=== PATIENT | male | born 1980 | race Hispanic/Latino ===

== ENCOUNTER 2020-07-27 12:17 | Inpatient (IN) | payer OTHER ==
[~2020-07-27] VITALS: Ht 177.8 cm; Wt 77.1 kg
[2020-07-27 12:33] LABS: APPEARANCE,URINE Clear (CLEAR); BILIRUBIN,URINE Negative (NEGATIVE); COLOR,URINE Yellow (YELLOW); GLUCOSE, URINE (UA) Negative (NEGATIVE); KETONES,URINE Negative (NEGATIVE); LEUKOCYTE ESTERASE ,URINE Negative (NEGATIVE); NITRATE,URINE Negative (NEGATIVE); OCCULT BLOOD,URINE Negative (NEGATIVE); PH,URINE 5.5 (5.0-8.0); PROTEIN,URINE Negative (NEGATIVE); UROBILINOGEN,URINE 0.2 mg/dL (0.2-1.0)
[2020-07-27] MEDS ORDERED: SODIUM CHLORIDE 0.9% 1000ML 1,000 ML IV ONE (12:43)
[2020-07-27 12:44] LABS: BASOPHILS % (AUTO) 0.5 % (0.0-5.0); EOSINOPHILS % (AUTO) 1.1 % (0.0-8.0); HEMATOCRIT 42.7 % (42-54); LYMPHOCYTES % (AUTO) 21.6 % (21.0-51.0); MEAN CORPUSCULAR HEMOGLOBIN 30.4 pg (27.0-33.0); MEAN CORPUSCULAR HGB CONC 34.2 g/dL (32.0-36.0); MEAN CORPUSCULAR VOLUME 88.8 fL (79-99); MONOCYTES % (AUTO) 8.6 % (3.0-13.0); PLATELET COUNT (AUTO) 234 K/uL (130-400); RED BLOOD CELL COUNT(AUTO) 4.81 MIL/uL (4.50-6.20); RED CELL DISTRIBUTION WIDTH 12.7 % (11.0-15.5); WHITE BLOOD COUNT (AUTO) 8.4 K/uL (4.8-10.8)
[2020-07-27] MEDS ORDERED: IOHEXOL 350 MG/ML 100ML INFUS..BTL IV ONE (12:48)
[2020-07-27] MEDS ORDERED: KETOROLAC TROMETHAMINE 30MG/ML ONE (12:52)
[2020-07-27] MEDS ORDERED: ONDANSETRON HCL 4 MG/2 ML VIAL ONE (12:52)
[2020-07-27 12:57] LABS: ALBUMIN 4.1 g/dL (3.5-5.0); BILIRUBIN,TOTAL 1.2 mg/dL (0.2-1.0); POTASSIUM 3.3 mmol/L (3.5-5.1); TOTAL PROTEIN, SERUM 7.6 g/dL (6.0-8.3)
[2020-07-27] MEDS ORDERED: MORPHINE SULFATE 4 MG/1ML SYG ONE (13:56)
[2020-07-27] MEDS ORDERED: ACETAMINOPHEN 325 MG TAB PO PRN ×2 (16:30)
[2020-07-27] MEDS ORDERED: MORPHINE SULFATE 4 MG/1ML SYG IV PRN (16:30)
[2020-07-27] MEDS: SODIUM CHLORIDE 0.9% 1000ML 1,000 ML IV SCH (16:30)
[2020-07-27] MEDS ORDERED: ZOSYN 3.375GM+NS 50ML 50 ML IV ONE (16:32)
[2020-07-27 17:09] LABS: HEMOGLOBIN A1C 5.5 % (4.0-6.0)
[2020-07-27 19:06] VITALS: BP 110/74
[2020-07-27 19:36] VITALS: BP 108/71
[2020-07-27] MEDS ORDERED: MAGNESIUM CITRATE 296 ML SOLUTION PO ONE (20:45)
[2020-07-27] MEDS: FAMOTIDINE/PF 20 MG/2 ML VIAL IV SCH (21:14)
[2020-07-27 23:18] VITALS: BP 101/62
[2020-07-28] VITALS (25 sets, daily range): BP systolic 92–115; BP diastolic 52–77
[2020-07-28] MEDS: ZOSYN 3.375GM+NS 50ML 50 ML IV SCH ×5 (00:38→21:16)
[2020-07-28] MEDS ORDERED: HYDROMORPHONE HCL 0.5 MG/0.5 ML ML IVP ONE (01:00)
[2020-07-28] MEDS: SODIUM CHLORIDE 0.9% 1000ML 1,000 ML IV SCH ×7 (02:30→21:16)
[2020-07-28 05:29] LABS: BASOPHILS % (AUTO) 0.5 % (0.0-5.0); EOSINOPHILS % (AUTO) 1.3 % (0.0-8.0); HEMATOCRIT 39.6 % (42-54); LYMPHOCYTES % (AUTO) 24.2 % (21.0-51.0); MEAN CORPUSCULAR HEMOGLOBIN 29.7 pg (27.0-33.0); MEAN CORPUSCULAR HGB CONC 33.1 g/dL (32.0-36.0); MEAN CORPUSCULAR VOLUME 89.8 fL (79-99); MONOCYTES % (AUTO) 7.9 % (3.0-13.0); NEUTROPHILS % (AUTO) 65.8 % (40.0-77.0); PLATELET COUNT (AUTO) 209 K/uL (130-400); RED BLOOD CELL COUNT(AUTO) 4.41 MIL/uL (4.50-6.20); RED CELL DISTRIBUTION WIDTH 12.6 % (11.0-15.5); WHITE BLOOD COUNT (AUTO) 7.6 K/uL (4.8-10.8)
[2020-07-28 05:39] LABS: POTASSIUM 3.8 mmol/L (3.5-5.1)
[2020-07-28] MEDS ORDERED: SUCCINYLCHOLINE CHLORIDE 20 MG/ML 10 ML VIAL ONE (07:15)
[2020-07-28] MEDS ORDERED: LIDOCAINE PF 2% 5ML ABBOJECT ONE (07:15)
[2020-07-28] MEDS ORDERED: ROCURONIUM 10MG/1ML SYR 10 MG/ML ML ONE ×2 (07:16→07:35)
[2020-07-28] MEDS ORDERED: FENTANYL CITRATE PF 50 MCG/1 ML 2ML VIAL ONE (07:16)
[2020-07-28] MEDS ORDERED: PROPOFOL 10 MG/ML 20ML VIAL IV ONE (07:16)
[2020-07-28] MEDS ORDERED: BUPIVACAINE/PF 0.25% 30ML VIAL IJ ONE (07:25)
[2020-07-28] MEDS: FAMOTIDINE/PF 20 MG/2 ML VIAL IV SCH ×2 (09:00→21:16)
[2020-07-28] MEDS ORDERED: LIDOCAINE HCL 1% 20 ML VIAL ONE (09:10)
[2020-07-28] MEDS ORDERED: GLYCOPYRROLATE 1 MG/5 ML SYRINGE ONE (09:27)
[2020-07-28] MEDS ORDERED: KETOROLAC TROMETHAMINE 30MG/ML ONE (09:27)
[2020-07-28] MEDS ORDERED: ONDANSETRON HCL 4 MG/2 ML VIAL ONE (09:27)
[2020-07-28] MEDS ORDERED: NEOSTIGMINE 5MG/5ML SYR IV ONE (09:27)
[2020-07-28] MEDS ORDERED: MEPERIDINE-PF 25 MG/ML SYG ONE (10:19)
[2020-07-28] MEDS: MORPHINE SULFATE 2 MG/ML 1ML SYG IV PRN ×2 (11:29→21:17)
[2020-07-28] MEDS: ONDANSETRON HCL 4 MG/2 ML VIAL IV PRN ×2 (11:30→21:23)
[2020-07-28] MEDS ORDERED: OXYCODONE/ACETAMIN 5/325MG TAB PO PRN (12:15)
[2020-07-28] MEDS ORDERED: OXYCODONE/ACETAMIN 5/325MG TAB ONE ×2 (12:17→12:21)
[2020-07-29] MEDS: MORPHINE SULFATE 2 MG/ML 1ML SYG IV PRN ×3 (01:18→12:33)
[2020-07-29] MEDS: ZOSYN 3.375GM+NS 50ML 50 ML IV SCH ×2 (04:16→12:34)
[2020-07-29 04:40] VITALS: BP 112/70
[2020-07-29 06:26] LABS: BASOPHILS % (AUTO) 0.6 % (0.0-5.0); EOSINOPHILS % (AUTO) 1.9 % (0.0-8.0); HEMATOCRIT 39.2 % (42-54); LYMPHOCYTES % (AUTO) 28.3 % (21.0-51.0); MEAN CORPUSCULAR HGB CONC 33.2 g/dL (32.0-36.0); MEAN CORPUSCULAR VOLUME 90.3 fL (79-99); MONOCYTES % (AUTO) 11.8 % (3.0-13.0); PLATELET COUNT (AUTO) 225 K/uL (130-400); RED BLOOD CELL COUNT(AUTO) 4.34 MIL/uL (4.50-6.20); RED CELL DISTRIBUTION WIDTH 12.8 % (11.0-15.5)
[2020-07-29 06:38] LABS: POTASSIUM 3.6 mmol/L (3.5-5.1)
[2020-07-29 08:00] VITALS: BP 91/61
[2020-07-29] MEDS: SODIUM CHLORIDE 0.9% 1000ML 1,000 ML IV SCH ×2 (08:30→11:45)
[2020-07-29] MEDS: FAMOTIDINE/PF 20 MG/2 ML VIAL IV SCH (09:54)
[2020-07-29 11:00] VITALS: BP 103/69
[2020-07-29 16:00] VITALS: BP 113/74
[2020-07-29] MEDS ORDERED: DICYCLOMINE HCL 10 MG/5 ML ML PO SCH (18:55)
== END 2020-07-29 19:05 | disposition home or self-care (01) | DRG 343 ==
LOC: EDH 12:17 → EDHIP 16:18 → 3DH 17:44
PROVIDERS: ADMIT Internal Medicine; ATTEND Internal Medicine
PROC: 0DTJ4ZZ Resection of Appendix, Percutaneous Endoscopic Approach (ICD-10-PCS; principal; 2020-07-28 08:43)
DX: K35.80 Unspecified acute appendicitis (principal); F17.210 Nicotine dependence, cigarettes, uncomplicated; K76.0 Fatty (change of) liver, not elsewhere classified
CPT/HCPCS: 36415; 74177; 76705; 80048; 80053; 81003; 82150; 83036; 83605; 83690; 84145; 85025; 85651; 93005; A4344; G0378; J0330; J1170; J1885; J2001; J2175; J2270; J2405; J2543; J2704; J2710; J3010; J3490; J7030; Q9967